=== PATIENT | male | born 1955 | race Caucasian/White ===

== ENCOUNTER 2017-09-25 00:49 | Day surgery (SDC) | payer OTHER ==
[~2017-09-25 00:49] MED LIST: ALBU90OI6 INH; ASPI325 PO; DIGO.125 PO; FINA5 PO; FISH1000 PO; FORM12IH IH; FURO40 PO; GLIP10 PO; HYDACE5 PO; LISI20 PO; METOPROLOL PO; NORT25 PO; OMEP20ER PO; PARO30 PO; RXHYDACE PO; SIMVASTATIN PO; TERA5 PO; TIOT18 IH; VITAMIN B50 COMPLEX PO; VITAMIN D PO
== END 2017-09-25 15:35 | disposition home or self-care (01) ==
LOC: ATC 00:49
DX: E88.01 Alpha-1-antitrypsin deficiency (principal); J44.9 Chronic obstructive pulmonary disease, unspecified; I25.10 Atherosclerotic heart disease of native coronary artery without angina pectoris; H93.19 Tinnitus, unspecified ear; H91.90 Unspecified hearing loss, unspecified ear; Q55.69 Other congenital malformation of penis; Z79.899 Other long term (current) drug therapy
CPT/HCPCS: 96365; J0256

== ENCOUNTER 2017-10-08 00:54 | Day surgery (SDC) | payer OTHER | END 2017-10-08 15:28 | disposition home or self-care (01) | LOC: ATC 00:54 | DX: E88.01 Alpha-1-antitrypsin deficiency (principal); J44.9 Chronic obstructive pulmonary disease, unspecified; I25.10 Atherosclerotic heart disease of native coronary artery without angina pectoris; H93.19 Tinnitus, unspecified ear; H91.90 Unspecified hearing loss, unspecified ear; Q55.69 Other congenital malformation of penis | CPT/HCPCS: 96365; J0256 ==

== ENCOUNTER 2017-10-22 00:34 | Day surgery (SDC) | payer OTHER | END 2017-10-22 15:40 | disposition home or self-care (01) | LOC: ATC 00:34 | DX: E88.01 Alpha-1-antitrypsin deficiency (principal); J44.9 Chronic obstructive pulmonary disease, unspecified; E11.22 Type 2 diabetes mellitus with diabetic chronic kidney disease; M54.5 Low back pain; I13.0 Hypertensive heart and chronic kidney disease with heart failure and stage 1 through stage 4 chronic kidney disease, or unspecified chronic kidney disease; I50.40 Unspecified combined systolic (congestive) and diastolic (congestive) heart failure; N18.2 Chronic kidney disease, stage 2 (mild); I25.10 Atherosclerotic heart disease of native coronary artery without angina pectoris | CPT/HCPCS: 96365; J0256 ==

== ENCOUNTER 2017-11-05 00:18 | Day surgery (SDC) | payer OTHER | END 2017-11-05 14:53 | disposition home or self-care (01) | LOC: ATC 00:18 | DX: E88.01 Alpha-1-antitrypsin deficiency (principal); E11.9 Type 2 diabetes mellitus without complications; I10 Essential (primary) hypertension | CPT/HCPCS: 96365; J0256 ==

== ENCOUNTER 2017-12-10 00:21 | Day surgery (SDC) | payer OTHER | END 2017-12-10 15:10 | disposition home or self-care (01) | LOC: ATC 00:21 | DX: E88.01 Alpha-1-antitrypsin deficiency (principal) | CPT/HCPCS: 96365; J0256 ==

== ENCOUNTER 2017-12-24 00:44 | Day surgery (SDC) | payer OTHER | END 2017-12-24 10:59 | disposition home or self-care (01) | LOC: ATC 00:44 | DX: E88.01 Alpha-1-antitrypsin deficiency (principal) | CPT/HCPCS: 96365; J0256 ==

== ENCOUNTER 2018-01-07 07:17 | Day surgery (SDC) | payer OTHER ==
[2018-01-07] MEDS ORDERED: PROLASTIN1000 MG/20 IV (13:51)
== END 2018-01-07 15:45 | disposition home or self-care (01) ==
LOC: ATC 07:17
DX: E88.01 Alpha-1-antitrypsin deficiency (principal); E11.65 Type 2 diabetes mellitus with hyperglycemia; I10 Essential (primary) hypertension; J44.9 Chronic obstructive pulmonary disease, unspecified
CPT/HCPCS: 96365; 96366; J0256

== ENCOUNTER 2018-01-21 00:04 | Day surgery (SDC) | payer OTHER ==
[~2018-01-21 00:04] MED LIST changes: +PROLASTIN1000 MG/20 IV
== END 2018-01-21 15:12 | disposition home or self-care (01) ==
LOC: ATC 00:04
DX: E88.01 Alpha-1-antitrypsin deficiency (principal)
CPT/HCPCS: 96365; J0256

== ENCOUNTER 2018-02-04 | Day surgery (SDC) | END 2018-02-04 15:20 | disposition home or self-care (01) ==

== ENCOUNTER 2018-02-18 00:53 | Day surgery (SDC) | payer OTHER | END 2018-02-18 15:10 | disposition home or self-care (01) | LOC: ATC 00:53 | DX: E88.01 Alpha-1-antitrypsin deficiency (principal) | CPT/HCPCS: 96365; J0256 ==

== ENCOUNTER 2018-03-03 00:20 | Day surgery (SDC) | payer OTHER | END 2018-03-03 15:28 | disposition home or self-care (01) | LOC: ATC 00:20 | DX: E88.01 Alpha-1-antitrypsin deficiency (principal) | CPT/HCPCS: 96365; J0256 ==

== ENCOUNTER 2018-03-18 00:49 | Day surgery (SDC) | payer OTHER | END 2018-03-18 14:39 | disposition home or self-care (01) | LOC: ATC 00:49 | DX: E88.01 Alpha-1-antitrypsin deficiency (principal); I25.10 Atherosclerotic heart disease of native coronary artery without angina pectoris; Z79.899 Other long term (current) drug therapy; Z79.82 Long term (current) use of aspirin; Z79.84 Long term (current) use of oral hypoglycemic drugs; E11.22 Type 2 diabetes mellitus with diabetic chronic kidney disease; I13.0 Hypertensive heart and chronic kidney disease with heart failure and stage 1 through stage 4 chronic kidney disease, or unspecified chronic kidney disease; N18.2 Chronic kidney disease, stage 2 (mild); I50.22 Chronic systolic (congestive) heart failure; J43.9 Emphysema, unspecified | CPT/HCPCS: 96365; J0256 ==

== ENCOUNTER 2018-04-08 00:32 | Day surgery (SDC) | payer OTHER | END 2018-04-08 15:08 | disposition home or self-care (01) | LOC: ATC 00:32 | DX: E88.01 Alpha-1-antitrypsin deficiency (principal) | CPT/HCPCS: 96365; J0256 ==

== ENCOUNTER 2018-04-22 00:47 | Day surgery (SDC) | payer OTHER | END 2018-04-22 15:23 | disposition home or self-care (01) | LOC: ATC 00:47 | DX: E88.01 Alpha-1-antitrypsin deficiency (principal) | CPT/HCPCS: 96365; J0256 ==

== ENCOUNTER 2018-05-06 00:12 | Day surgery (SDC) | payer OTHER ==
[2018-05-06] MEDS ORDERED: IRON150C PO (14:05)
== END 2018-05-06 14:53 | disposition home or self-care (01) ==
LOC: ATC 00:12
DX: E88.01 Alpha-1-antitrypsin deficiency (principal)
CPT/HCPCS: 96365; J0256

== ENCOUNTER 2018-06-03 02:06 | Day surgery (SDC) | payer OTHER ==
[~2018-06-03 02:06] MED LIST changes: +IRON150C PO
== END 2018-06-03 14:54 | disposition home or self-care (01) ==
LOC: ATC 02:06
DX: E88.01 Alpha-1-antitrypsin deficiency (principal)
CPT/HCPCS: 96365; J0256

== ENCOUNTER 2018-08-26 00:12 | Day surgery (SDC) | payer OTHER | END 2018-08-26 14:55 | disposition home or self-care (01) | LOC: ATC 00:12 | DX: E88.01 Alpha-1-antitrypsin deficiency (principal); E11.65 Type 2 diabetes mellitus with hyperglycemia; I10 Essential (primary) hypertension | CPT/HCPCS: 96365; J0256 ==

== ENCOUNTER 2018-09-09 00:07 | Day surgery (SDC) | payer OTHER | END 2018-09-09 14:34 | disposition home or self-care (01) | LOC: ATC 00:07 | DX: E88.01 Alpha-1-antitrypsin deficiency (principal); E11.65 Type 2 diabetes mellitus with hyperglycemia; I10 Essential (primary) hypertension | CPT/HCPCS: 96365; J0256 ==

== ENCOUNTER 2018-09-23 00:12 | Day surgery (SDC) | payer OTHER | END 2018-09-23 14:37 | disposition home or self-care (01) | LOC: ATC 00:12 | DX: E88.01 Alpha-1-antitrypsin deficiency (principal); E11.65 Type 2 diabetes mellitus with hyperglycemia; I10 Essential (primary) hypertension | CPT/HCPCS: 96365; J0256 ==

== ENCOUNTER 2018-10-07 00:18 | Day surgery (SDC) | payer OTHER | END 2018-10-07 15:22 | disposition home or self-care (01) | LOC: ATC 00:18 | DX: E88.01 Alpha-1-antitrypsin deficiency (principal) | CPT/HCPCS: 96365; J0256 ==

== ENCOUNTER 2018-10-21 00:11 | Day surgery (SDC) | payer OTHER | END 2018-10-21 14:01 | disposition home or self-care (01) | LOC: ATC 00:11 | DX: E88.01 Alpha-1-antitrypsin deficiency (principal) | CPT/HCPCS: 96365; J0256 ==

== ENCOUNTER 2018-11-25 00:25 | Day surgery (SDC) | payer OTHER ==
--- NOTE | 2018-11-25 13:30 | NUR ---
PT STATES HE HAS BEEN NOT FEELING WELL FOR A WEEK. STATES HE IS NAUSEATED. BP LOW. ASKED IF PT WOULD LIKE TO GO TO ER AND PT SAID NO. WILL RECHECK VS AT DISCHARGE.
== END 2018-11-25 14:44 | disposition home or self-care (01) ==
LOC: ATC 00:25
DX: E88.01 Alpha-1-antitrypsin deficiency (principal); J44.9 Chronic obstructive pulmonary disease, unspecified; J96.11 Chronic respiratory failure with hypoxia; G47.33 Obstructive sleep apnea (adult) (pediatric); Z87.891 Personal history of nicotine dependence; Z79.899 Other long term (current) drug therapy
CPT/HCPCS: J0256

== ENCOUNTER 2018-12-09 00:41 | Day surgery (SDC) | payer OTHER | END 2018-12-09 14:54 | disposition home or self-care (01) | LOC: ATC 00:41 | DX: E88.01 Alpha-1-antitrypsin deficiency (principal); J44.9 Chronic obstructive pulmonary disease, unspecified; J96.11 Chronic respiratory failure with hypoxia; G47.33 Obstructive sleep apnea (adult) (pediatric); I50.9 Heart failure, unspecified; E11.9 Type 2 diabetes mellitus without complications; K21.9 Gastro-esophageal reflux disease without esophagitis; Z99.89 Dependence on other enabling machines and devices; Z87.891 Personal history of nicotine dependence; Z79.899 Other long term (current) drug therapy; Z79.84 Long term (current) use of oral hypoglycemic drugs | CPT/HCPCS: 96365; J0256 ==

== ENCOUNTER 2018-12-23 00:24 | Day surgery (SDC) | payer OTHER ==
--- NOTE | 2018-12-25 09:26 | NUR ---
PROLASTIN STOP TIME AT 1517.
== END 2018-12-23 15:19 | disposition home or self-care (01) ==
LOC: ATC 00:24
DX: E88.01 Alpha-1-antitrypsin deficiency (principal); I10 Essential (primary) hypertension; J84.10 Pulmonary fibrosis, unspecified; E11.9 Type 2 diabetes mellitus without complications
CPT/HCPCS: J0256

== ENCOUNTER 2019-01-06 00:04 | Day surgery (SDC) | payer OTHER | END 2019-01-06 15:02 | disposition home or self-care (01) | LOC: ATC 00:04 | DX: E88.01 Alpha-1-antitrypsin deficiency (principal); E11.22 Type 2 diabetes mellitus with diabetic chronic kidney disease; I13.0 Hypertensive heart and chronic kidney disease with heart failure and stage 1 through stage 4 chronic kidney disease, or unspecified chronic kidney disease; I50.22 Chronic systolic (congestive) heart failure; N18.2 Chronic kidney disease, stage 2 (mild); J44.9 Chronic obstructive pulmonary disease, unspecified; Z87.891 Personal history of nicotine dependence | CPT/HCPCS: 96365; J0256 ==

== ENCOUNTER 2019-01-20 00:18 | Day surgery (SDC) | payer OTHER | END 2019-01-20 22:47 | disposition home or self-care (01) | LOC: ATC 00:18 | DX: E88.01 Alpha-1-antitrypsin deficiency (principal); I13.0 Hypertensive heart and chronic kidney disease with heart failure and stage 1 through stage 4 chronic kidney disease, or unspecified chronic kidney disease; E11.22 Type 2 diabetes mellitus with diabetic chronic kidney disease; N18.2 Chronic kidney disease, stage 2 (mild); I50.22 Chronic systolic (congestive) heart failure; J44.9 Chronic obstructive pulmonary disease, unspecified; I25.10 Atherosclerotic heart disease of native coronary artery without angina pectoris; E66.9 Obesity, unspecified; Z87.891 Personal history of nicotine dependence | CPT/HCPCS: 96365; J0256 ==

== ENCOUNTER 2019-03-03 00:27 | Day surgery (SDC) | payer OTHER ==
[~2019-03-03 00:27] MED LIST changes: -ASPI325 PO; +Aspirin EC81 MG PO; +B Complex-Foli1 EACH PO; -DIGO.125 PO; +LANOXIN125 MCG PO; -LISI20 PO; +LISI5 PO; +METO100ER PO; -METOPROLOL PO; -NORT25 PO; +Nortriptyline H50 MG PO; +SIMV40 PO; -SIMVASTATIN PO; +THERA-D2000 UNIT PO; -VITAMIN B50 COMPLEX PO; -VITAMIN D PO
== END 2019-03-03 14:41 | disposition home or self-care (01) ==
LOC: ATC 00:27
DX: E88.01 Alpha-1-antitrypsin deficiency (principal)
CPT/HCPCS: 96365; J0256

== ENCOUNTER 2019-04-14 00:24 | Day surgery (SDC) | payer OTHER | END 2019-04-14 14:39 | disposition home or self-care (01) | LOC: ATC 00:24 | DX: E88.01 Alpha-1-antitrypsin deficiency (principal); J44.9 Chronic obstructive pulmonary disease, unspecified; I50.9 Heart failure, unspecified; E11.9 Type 2 diabetes mellitus without complications; K21.9 Gastro-esophageal reflux disease without esophagitis; G47.33 Obstructive sleep apnea (adult) (pediatric); Z99.89 Dependence on other enabling machines and devices; Z87.891 Personal history of nicotine dependence | CPT/HCPCS: 96365; J0256 ==

== ENCOUNTER 2019-04-28 00:14 | Day surgery (SDC) | payer OTHER | END 2019-04-28 15:00 | disposition home or self-care (01) | LOC: ATC 00:14 | DX: E88.01 Alpha-1-antitrypsin deficiency (principal); E11.9 Type 2 diabetes mellitus without complications; I10 Essential (primary) hypertension; Z87.891 Personal history of nicotine dependence | CPT/HCPCS: 96365; J0256 ==

== ENCOUNTER 2019-05-26 00:18 | Day surgery (SDC) | payer OTHER | END 2019-05-26 14:44 | disposition home or self-care (01) | LOC: ATC 00:18 | DX: E88.01 Alpha-1-antitrypsin deficiency (principal); E11.9 Type 2 diabetes mellitus without complications; J44.9 Chronic obstructive pulmonary disease, unspecified; Z87.891 Personal history of nicotine dependence | CPT/HCPCS: 96365; J0256 ==

== ENCOUNTER 2019-06-09 00:08 | Day surgery (SDC) | payer OTHER | END 2019-06-09 15:53 | disposition home or self-care (01) | LOC: ATC 00:08 | DX: E88.01 Alpha-1-antitrypsin deficiency (principal); E11.9 Type 2 diabetes mellitus without complications; J44.9 Chronic obstructive pulmonary disease, unspecified; Z87.891 Personal history of nicotine dependence | CPT/HCPCS: 96365; J0256 ==

== ENCOUNTER 2019-06-18 11:50 | Inpatient (IN) | payer OTHER ==
[~2019-06-18] VITALS: Ht 170.2 cm; Wt 95.4 kg
[2019-06-18 12:37] LABS: BASOPHILS ABSOLUTE AUTO 0.02 K/mm3 (0.00-0.23); BASOPHILS PERCENT AUTO 1 % (0-2); EOSINOPHILS ABSOLUTE AUTO 0.14 K/mm3 (0.00-0.68); EOSINOPHILS PERCENT AUTO 3 % (0-6); Hematocrit 31.7 % (37.0-53.0); Hemoglobin 10.4 g/dL (13.5-17.5); IMMATURE GRAN ABSOLUTE AUTO 0.02 K/mm3 (0.00-0.10); IMMATURE GRAN PERCENT AUTO 1 % (0-1); LYMPHOCYTES ABSOLUTE AUTO 0.66 K/mm3 (0.84-5.20); LYMPHOCYTES PERCENT AUTO 15 % (21-46); MONOCYTES ABSOLUTE AUTO 0.24 K/mm3 (0.16-1.47); MONOCYTES PERCENT AUTO 6 % (4-13); Mean Corpuscular HGB 32.4 pg (26.0-34.0); Mean Corpuscular HGB Conc 32.8 g/dL (31.5-36.5); Mean Corpuscular Volume 99 fL (80-100); Mean Platelet Volume 11.2 fL (9.1-12.4); NEUTROPHILS ABSOLUTE AUTO 3.32 K/mm3 (1.96-9.15); NEUTROPHILS PERCENT AUTO 75 % (41-73); Platelet Count 75 K/mm3 (150-400); RDW Coefficient Variation 14.9 % (11.7-14.2); RDW Standard Deviation 53.9 fL (35.1-46.3); Red Blood Cell Count 3.21 M/mm3 (4.30-5.90)
[2019-06-18 12:54] LABS: Alanine Aminotransfer (ALT/SGP 48 U/L (12-78); Albumin, Blood 2.6 g/dL (3.4-5.0); Albumin/Globulin Ratio 0.6 (0.8-1.8); Alk Phos 156 U/L (50-136); Anion Gap 7 mmol/L (6-16); Aspartate Aminotrans (AST/SGOT 59 U/L (12-37); Bilirubin, Total 1.1 mg/dL (0.1-1.0); Blood Urea Nitrogen 57 mg/dL (8-24); Bun/Creatinine Ratio 22.9 (12.0-20.0); CO2, Blood 30 mmol/L (21-32); Calcium, Blood 8.8 mg/dL (8.5-10.1); Chloride, Blood 99 mmol/L (98-108); Creatinine, Blood 2.49 mg/dL (0.60-1.20); Globulin, Blood 4.6 g/dL (2.2-4.0); Glomerular Filtration Rate 28 (60-); Glucose, Blood 273 mg/dL (70-99); Potassium, Blood 4.9 mmol/L (3.5-5.5); Sodium, Blood 136 mmol/L (136-145); Total Protein, Blood 7.2 g/dL (6.4-8.2); Troponin I <0.015 ng/mL (0.000-0.040)
[2019-06-18 12:58] LABS: PCO2 Arterial 41.8 mmHg (35-45); PO2 Arterial 75.2 mmHg (80-100); pH Blood Arterial 7.45 (7.35-7.45)
[2019-06-18 13:10] LABS: International Normalized Ratio 1.25
[2019-06-18 13:11] LABS: Source, Urine Clean Catch
[2019-06-18 13:14] LABS: Bilirubin, Urine Neg (Neg); Blood, Urine 1+ (Neg); Glucose Qualitative, Urine Neg (Neg); Ketones, Urine Neg (Neg); Leukocyte Esterase, Urine 3+ (Neg); Nitrite, Urine Neg (Neg); Protein, Urine Neg (Neg); Specific Gravity, Urine 1.015 (1.003-1.022); Urobilinogen, Urine 1+ (Normal)
[2019-06-18 13:15] LABS: Appearance, Urine Hazy (Clear); Color, Urine Yellow (P-Yellow)
[2019-06-18 13:22] LABS: Bacteria Many /hpf; Red Blood Cells, Urine 0-2 /hpf (0-2); Squamous Epithelial Cells Few /hpf (Few); White Blood Cells, Urine 25-50 /hpf (0-5)
[2019-06-18] MEDS ORDERED: IRON PO (13:34)
[2019-06-18] MEDS ORDERED: RIFA550T2 PO (13:36)
[2019-06-18] MEDS ORDERED: BUDE6HFA INH (13:37)
[2019-06-18 13:43] LABS: Digoxin (Lanoxin) 1.66 ug/mL (0.80-2.00)
[2019-06-18] MEDS ORDERED: Aldactone50 MG PO (14:28)
[2019-06-18] MEDS ORDERED: METF500C PO (14:33)
[2019-06-18] MEDS ORDERED: STIOLTO RESPIMAT4 GM INH (14:34)
[2019-06-18] MEDS ORDERED: HYDHCL25 PO (18:54)
--- NOTE | 2019-06-18 19:49 | NUR ---
ARRIVAL AND SHIFT SUMMARY PT ARRIVED TO UNIT APPROX. 1715. VIA GURNERY FROM ED. PT ABLE TO TRANSFER HIMSELF FROM GURNEY TO BED AND TOLERATED WELL. ORIENTED PT TO ROOM, UNIT, AND POLICIES. ADMISSION PROCESS COMPLETED, ALTHOUGH MEDICATION RECONCILE WAS UNABLE TO BE ACCURATELY COMPLETED. NOTIFIED RECIEVING RN. ASSESSMENT COMPLETED. VITAL SIGNS STABLE. PT REPORTS FEELING SOME BETTER FROM WHEN HE CAME IN TODAY. PT HAS A HOARSE VOICE AND REPORTS THIS TO BE NORMAL. SLIGHT ABDOMENAL DISTENTION NOTED. PT REPROTS THIS HAS IMPROVED OVER ALST COUPLE OF WEEKS. PT ABLE TO EAT DINNER AND TOLERATED WELL. ASSESSMENT FINDINGS REMAIN UNCHANGED. BED IN LOW POSITION, BED ALARM ON, CALL LIGHT IN REACH AND PT DENIES ANY NEEDS. WILL CONTINUE TO MONITOR UNTIL HANDOFF TO NIGHTSHIFT RN.
[2019-06-19 04:21] LABS: BASOPHILS ABSOLUTE AUTO 0.02 K/mm3 (0.00-0.23); BASOPHILS PERCENT AUTO 1 % (0-2); EOSINOPHILS ABSOLUTE AUTO 0.15 K/mm3 (0.00-0.68); EOSINOPHILS PERCENT AUTO 4 % (0-6); Hematocrit 27.9 % (37.0-53.0); Hemoglobin 9.1 g/dL (13.5-17.5); IMMATURE GRAN ABSOLUTE AUTO 0.01 K/mm3 (0.00-0.10); IMMATURE GRAN PERCENT AUTO 0 % (0-1); LYMPHOCYTES ABSOLUTE AUTO 0.77 K/mm3 (0.84-5.20); LYMPHOCYTES PERCENT AUTO 19 % (21-46); MONOCYTES ABSOLUTE AUTO 0.25 K/mm3 (0.16-1.47); MONOCYTES PERCENT AUTO 6 % (4-13); Mean Corpuscular HGB 31.7 pg (26.0-34.0); Mean Corpuscular HGB Conc 32.6 g/dL (31.5-36.5); Mean Corpuscular Volume 97 fL (80-100); Mean Platelet Volume 10.9 fL (9.1-12.4); NEUTROPHILS ABSOLUTE AUTO 2.81 K/mm3 (1.96-9.15); NEUTROPHILS PERCENT AUTO 70 % (41-73); Platelet Count 63 K/mm3 (150-400); RDW Coefficient Variation 14.8 % (11.7-14.2); RDW Standard Deviation 53.2 fL (35.1-46.3); Red Blood Cell Count 2.87 M/mm3 (4.30-5.90); White Blood Cell Count 4.01 K/mm3 (4.00-11.30)
[2019-06-19 04:35] LABS: Bun/Creatinine Ratio 22.2 (12.0-20.0); Calcium, Blood 8.4 mg/dL (8.5-10.1); Creatinine, Blood 2.3 mg/dL (0.60-1.20); Potassium, Blood 4.8 mmol/L (3.5-5.5)
--- NOTE | 2019-06-19 07:53 | NUR ---
SHIFT SUMMARY ASSUMED CARE OF PT AT 1900, PT AWAKE AND ALERT LYING IN BED. PT REPORTED TO BE CONFUSED, BUT PT'S MENTATION AND PHYSICAL BALANCE IMPROVED BY THE HOUR THIS SHIFT. PT WAS MEDICATED AND TREATED PER MD ORDER AND UNIT PROTOCOL, AND OBSERVED CAREFULLY WITH INITIAL TRANSFERS AND MED ADMINISTRATIONS. PT AMBULATES WELL TO BATHROOM, REPOSITIONS SELF IN BED, IS COMPLIANT WITH CALL LIGHT, AND APPEARS NO DANGER TO HIMSELF. ALL VSS T/O SHIFT. PICTURES WERE TAKEN OF PT'S MANY BRUISES AND SCABS REPORTED FROM RECENT FALLS AND FILED IN PT'S PAPER CHART. PASSED CARE AND REPORT TO ONCOMING SHIFT AT 0700, WITH PT'S BED LOW AND LOCKED, AND CALL LIGHT W/IN REACH.
--- NOTE | 2019-06-19 09:01 | NUR ---
PCU DAYSHIFT ASSUMED CARE OF PT APPROX. 0700. PT A&OX4. ASSESSMENT COMPLETED. VITAL SIGNS STABLE. PT REPORTS THIS MORNING THAT HE FEELS BETTER THAN YESTERDAY. HE STATES THAT HE FEELS HE IS CLEARING UP SOME. HE STATES HE FEEL HE CAN FOCUS MORE THAN BEFORE. PT IS ON 2L OXYGEN VIA N.C. WITH SATS IN 90'S. PT ABLE TO WALK TO BATHROOM A SBA AND TOLERATES WELL. PT PASSING FLATULENCE AND A SMALL AMOUNT OF STOOL PER HIS REPORT. BED IN LOW POSITION, CALL LIGHT IN REACH AND PT DENIES ANY NEEDS. WILL CONTINUE TO MONITOR
--- NOTE | 2019-06-19 14:01 | NUR ---
NOTE BLADDER SCAN COMPLETED AND FOUND 215 CC IN BLADDER. NOTIFIED DR. LANDEROS AND RECIEVED NO NEW ORDERS AT THIS TIME. RECIEVED A NEW ROOM ASSIGNMENT. REPORTS CALLED TO RECIEVING RN. PT TO BE TAKEN TO NEW ROOM VIA WHEELCHAIR BY PEER STAFF MEMBER. WILL CONTINUE TO MONITOR UNTIL PT DEPARTS UNIT
--- NOTE | 2019-06-19 17:02 | NUR ---
RECEIVED FROM [facility] ABOUT 1445 TO RM 333 VIA W/C. ORIENTED TO ROOM. CALL LIGHT IN REACH AND BED ALARM SET D/T FALLS AT HOME. VARIED BP 1 MIN APART THIS AFTERNOON. HE FELT NORMAL. HE IS GENERALLY WEAK. THE PHYSICAL THERAPIST WORKED WITH HIM JUST AFTER 3 PM TODAY. THE PATIENT WALKED IN THE ROOM. O2 2L. NO COMPLAINTS. PAS RESUMED. CPAP FROM HOME IN THE ROOM FOR TONIGHT.
--- NOTE | 2019-06-20 04:13 | NUR ---
SHIFT SUMMARY: PT IS ALERT AND ORIENTED. PT IS CALM AND COOPERATIVE WITH CARE. PT CALLS APPROPRIATELY. PT IS A STANDBY ASSIST TO THE BATHROOM. PT DENIES PAIN, NAUSEA, VOMITING, AND SOB. DR. LANDEROS STOPPED BY AND REQUESTED A BLADDER SCAN, RESULTS SHOWED 196 ML, THE PT THEN VOIDED 100 ML SHORLTY THEREAFTER. PT SLEPT INTERMITTENTLY THROUGHOUT THE NIGHT. PT DID NOT WEAR CPAP OVERNIGHT, SAID HIS STRAPS ARE NOT FITTING TIGHTLY AND HE DID NOT DESIRE TO USE THE HOSPITAL'S CPAP. NO ACUTE CHANGES OR COMPLICATIONS THIS SHIFT. BED IN LOW POSITION, CALL LIGHT WITHIN REACH. WILL CONTINUE TO MONITOR.
[2019-06-20 05:00] LABS: BASOPHILS ABSOLUTE AUTO 0.02 K/mm3 (0.00-0.23); BASOPHILS PERCENT AUTO 1 % (0-2); EOSINOPHILS ABSOLUTE AUTO 0.11 K/mm3 (0.00-0.68); EOSINOPHILS PERCENT AUTO 4 % (0-6); Hematocrit 26.1 % (37.0-53.0); Hemoglobin 8.4 g/dL (13.5-17.5); IMMATURE GRAN ABSOLUTE AUTO 0.01 K/mm3 (0.00-0.10); IMMATURE GRAN PERCENT AUTO 0 % (0-1); LYMPHOCYTES ABSOLUTE AUTO 0.54 K/mm3 (0.84-5.20); LYMPHOCYTES PERCENT AUTO 19 % (21-46); MONOCYTES ABSOLUTE AUTO 0.21 K/mm3 (0.16-1.47); MONOCYTES PERCENT AUTO 7 % (4-13); Mean Corpuscular HGB 32.3 pg (26.0-34.0); Mean Corpuscular HGB Conc 32.2 g/dL (31.5-36.5); Mean Platelet Volume 11.2 fL (9.1-12.4); NEUTROPHILS ABSOLUTE AUTO 1.97 K/mm3 (1.96-9.15); NEUTROPHILS PERCENT AUTO 69 % (41-73); Platelet Count 55 K/mm3 (150-400); RDW Standard Deviation 54.6 fL (35.1-46.3); White Blood Cell Count 2.86 K/mm3 (4.00-11.30)
[2019-06-20 05:02] LABS: Mean Corpuscular Volume 100 fL (80-100)
[2019-06-20 05:25] LABS: Albumin, Blood 2.2 g/dL (3.4-5.0); Anion Gap 6 mmol/L (6-16); Blood Urea Nitrogen 35 mg/dL (8-24); Bun/Creatinine Ratio 20.3 (12.0-20.0); CO2, Blood 24 mmol/L (21-32); Calcium, Blood 8.1 mg/dL (8.5-10.1); Chloride, Blood 110 mmol/L (98-108); Creatinine, Blood 1.72 mg/dL (0.60-1.20); Glomerular Filtration Rate 42 (60-); Glucose, Blood 184 mg/dL (70-99); Magnesium, Blood 1.7 mg/dL (1.6-2.4); Phosphorus, Blood 2.6 mg/dL (2.5-4.9); Potassium, Blood 4.8 mmol/L (3.5-5.5); Sodium, Blood 140 mmol/L (136-145); Uric Acid, Blood 8.7 mg/dL (3.5-7.2)
[2019-06-20 05:26] LABS: CPK Creatine Kinase 66 U/L (39-308)
--- NOTE | 2019-06-20 17:42 | NUR ---
HE HAS BEEN CLEAR HEADED TODAY. HIS NH3 LEVEL DOWN TO 38. HIS VISITED FOR SEVERAL HRS. SHE BROUGHT IN HIS RIFAXIMIN. IT HAS BEEN CHECKED BY PHARMACY AND LABELED. PT WORKED WITH HIM TODAY. HE IS EATING WELL. HE HAS HAD 4 LOOSE STOOLS TODAY AND IS STILL RECEIVING LACTULOSE. CBG'S STABLE. VSS. AMBULATES WITH SBA. 2L O2. HE CHOSE NOT TO WEAR HIS CPAP LAST NIGHT. [facility]. HIS NEW MASK LEAKS ALSO BECAUSE OF THE STRAPS. I ENCOURAGED HIM TO ASK FOR NEW STRAPS SO HIS CPAP WILL BE USABLE. HE SAYS WHEN IT FITS, HE SLEEPS REAL WELL. HIS VOICE IS WEAK, ALMOST LIKE A WHISPER. HE IS CURRENTLY SITTING ON THE SIDE OF THE BED EATING DINNER.
--- NOTE | 2019-06-21 04:04 | NUR ---
SHIFT SUMMARY: PT IS ALERT AND ORIENTED. PT IS CALM AND COOPERATIVE WITH CARE. PT CALLS APPROPRIATELY. PT IS A STANDBY ASSIST TO THE BATHROOM. FLUIDS RUNNING ORDERED. PT DENIES PAIN, NAUSEA, VOMITING, AND SOB. PT SLEPT MUCH OF THE NIGHT WHEN NOT DISTURBED. NO ACUTE CHANGES OR COMPLICATIONS. BED IN LOW POSITION, CALL LIGHT WITHIN REACH. WILL CONTINUE TO MONITOR.
[2019-06-21 05:53] LABS: BASOPHILS ABSOLUTE AUTO 0.02 K/mm3 (0.00-0.23); BASOPHILS PERCENT AUTO 1 % (0-2); EOSINOPHILS ABSOLUTE AUTO 0.17 K/mm3 (0.00-0.68); EOSINOPHILS PERCENT AUTO 5 % (0-6); Hematocrit 28.1 % (37.0-53.0); IMMATURE GRAN ABSOLUTE AUTO 0.01 K/mm3 (0.00-0.10); IMMATURE GRAN PERCENT AUTO 0 % (0-1); LYMPHOCYTES ABSOLUTE AUTO 0.55 K/mm3 (0.84-5.20); LYMPHOCYTES PERCENT AUTO 17 % (21-46); MONOCYTES ABSOLUTE AUTO 0.22 K/mm3 (0.16-1.47); MONOCYTES PERCENT AUTO 7 % (4-13); Mean Corpuscular HGB 31.7 pg (26.0-34.0); Mean Corpuscular Volume 99 fL (80-100); Mean Platelet Volume 10.9 fL (9.1-12.4); NEUTROPHILS ABSOLUTE AUTO 2.35 K/mm3 (1.96-9.15); NEUTROPHILS PERCENT AUTO 71 % (41-73); Platelet Count 58 K/mm3 (150-400); RDW Coefficient Variation 15.1 % (11.7-14.2); RDW Standard Deviation 54.7 fL (35.1-46.3); Red Blood Cell Count 2.84 M/mm3 (4.30-5.90); White Blood Cell Count 3.32 K/mm3 (4.00-11.30)
[2019-06-21 05:59] LABS: Percent Saturation 36.6 % (20.0-50.0)
[2019-06-21 06:00] LABS: Albumin, Blood 2.3 g/dL (3.4-5.0); Albumin/Globulin Ratio 0.5 (0.8-1.8); Bilirubin, Direct 0.9 mg/dL (0.0-0.3); Bilirubin, Indirect 0.5 mg/dL (0.1-0.7); Bilirubin, Total 1.4 mg/dL (0.1-1.0); Bun/Creatinine Ratio 18.2 (12.0-20.0); Creatinine, Blood 1.48 mg/dL (0.60-1.20); Globulin, Blood 4.2 g/dL (2.2-4.0); Magnesium, Blood 1.7 mg/dL (1.6-2.4); Phosphorus, Blood 2.5 mg/dL (2.5-4.9); Potassium, Blood 5.1 mmol/L (3.5-5.5); Total Protein, Blood 6.5 g/dL (6.4-8.2)
[2019-06-21 07:08] LABS: HBSAG SCREEN Negative (Negative); HEP A AB, IGM Negative (Negative); HEP B CORE AB, IGM Negative (Negative); HEP C VIRUS AB <0.1 (0.0-0.9)
--- NOTE | 2019-06-21 18:13 | NUR ---
ALERT. ORIENTED. DENIES; PAIN, N/V. NO TELE. ON 2 LPM. BRUISING T/O WITH PATIENT STATING HE HAS FALLEN AT HOME. COOPERATIVE. STS ABD "FEELS LITTLE BLOATED AGAIN" WITH AWARE. MULTIPLE STOOLS T/O DAY. LACTULOSE DECREASED. INDEPENDENT IN ROOM. WCTM
--- NOTE | 2019-06-22 04:58 | NUR ---
SHIFT SUMMARY PT HAS APPEARED TO REST COMFORTABLY THROUGHOUT THE NIGHT AND GETS UP TO USE THE RESTROOM WHEN NEEDED, BUT NEEDS REMINDED TO LET US KNOW WHEN HE GOES SO WE CAN DOCUMENT AND MEASURE THE VOID. NO OTHER CHANGES THIS SHIFT. WILL CONTINUE TO MONITOR.
--- NOTE | 2019-06-22 05:53 | NUR ---
PT BLADDER SCANNED. PT HAS 477ML NOTED. DR LANDEROS NOTIFIED AND WANTS TO SEE WHAT PT LAB RESULTS ARE BEFORE GIVING DIRECTION.
[2019-06-22 06:16] LABS: Albumin, Blood 2.4 g/dL (3.4-5.0); Anion Gap 3 mmol/L (6-16); Blood Urea Nitrogen 23 mg/dL (8-24); Bun/Creatinine Ratio 16.9 (12.0-20.0); CO2, Blood 24 mmol/L (21-32); Calcium, Blood 8.2 mg/dL (8.5-10.1); Chloride, Blood 112 mmol/L (98-108); Creatinine, Blood 1.36 mg/dL (0.60-1.20); Glomerular Filtration Rate 56 (60-); Glucose, Blood 150 mg/dL (70-99); Magnesium, Blood 1.6 mg/dL (1.6-2.4); Phosphorus, Blood 2.7 mg/dL (2.5-4.9); Potassium, Blood 4.9 mmol/L (3.5-5.5); Sodium, Blood 139 mmol/L (136-145)
--- NOTE | 2019-06-22 11:26 | NUR ---
TALKED TO ABOUT PATIENT URINATING. HAS BEEN URINATING SMALL AMOUNTS, DID BLADDER SCAN AND WAS 464 ML IN BLADDER. NOT ON MEDS FOR PROSTRATE. ABD SWOLLEN AND PATIENT FEELS LIKE PRESSURE FROM ABD IS REASON URINATING SMALL AMOUNTS. ORDER IN AND OUT CATH AND FLOMAX 0.4 DAILY W/NOW DOSE.
--- NOTE | 2019-06-22 12:03 | NUR ---
TALKED TO . IN AND OUT CATH PRODUCED 100ML WITH TUBE LOOKING RED AFTER 100 OUTPUT. COULD NOT GET ANY MORE FLUID OUT AND WHEN CATH REMOVED A COUPLE OF BLOOD CLOTS CAME OUT. BLADDER SCAN Q 6 HOURS AND IF OVER 450ML IN AND OUT CATH. MAY USE LIDOCAINE.
--- NOTE | 2019-06-22 17:58 | NUR ---
ALERT. ORIENTED. ON 2 LPM OXYGEN VIA N/C. AWARE WILL BE BLADDER SCANNED Q 6 HOURS OR SO AND IF OVER 450 ML WILL NEED TO HAVE STRAIGHT CATH. STILL HAVING SOFT STOOL. INDEPENDENT IN ROOM. NO ACUTE CHANGES. WCTM
--- NOTE | 2019-06-23 04:03 | NUR ---
SHIFT SUMMARY PT HAD NO ISSUES OR COMPLAINTS. PT HAS BEEN SLEEPING WELL T/O NIGHT. PT HAS BEEN GETTING UP TO USE RESTROOM. PT REPORTS CONTINUED LOOSE STOOL. PT REPORTS HE VOIDS SOME DURING BM'S. PT HAS BEEN VOIDING IN URINAL TO TRACK AMOUNT. PT WAS BLADDER SCANNED AT OOOO HRS AND DID NOT REQUIRE CATH. PT CURRENTLY SLEEPING IN NO DISTRESS. PT WILL BE BLADDER SCANNED AT 0600 HRS. CALL LIGHT IN REACH.
--- NOTE | 2019-06-23 06:08 | NUR ---
BLADDER SCAN PT BLADDER SCANNED AND WAS FOUND TO HAVE 660 ML. PT WAS STRIGHT CATH ORDERED. 200 ML WERE REMOVED. PT WAS BLADDER SCANNED AGAIN AND WAS READING 580 ML. PT WAS CATH AGAIN WITH LONGER CATH WITH ONLY 25 ML PRODUCED. PT HAS ONGOING DISTENDED ABD FROM ASCITES. POSSIBLE THAT BLADDER SCAN IS READING ASCITES AND NOT URINE. PT DENIES URGE TO VOID.
[2019-06-23 08:13] LABS: BASOPHILS ABSOLUTE AUTO 0.02 K/mm3 (0.00-0.23); BASOPHILS PERCENT AUTO 1 % (0-2); EOSINOPHILS ABSOLUTE AUTO 0.14 K/mm3 (0.00-0.68); EOSINOPHILS PERCENT AUTO 4 % (0-6); Hematocrit 27.4 % (37.0-53.0); Hemoglobin 8.9 g/dL (13.5-17.5); IMMATURE GRAN ABSOLUTE AUTO 0.01 K/mm3 (0.00-0.10); IMMATURE GRAN PERCENT AUTO 0 % (0-1); LYMPHOCYTES ABSOLUTE AUTO 0.56 K/mm3 (0.84-5.20); LYMPHOCYTES PERCENT AUTO 14 % (21-46); MONOCYTES ABSOLUTE AUTO 0.23 K/mm3 (0.16-1.47); MONOCYTES PERCENT AUTO 6 % (4-13); Mean Corpuscular HGB 32.4 pg (26.0-34.0); Mean Corpuscular HGB Conc 32.5 g/dL (31.5-36.5); Mean Corpuscular Volume 100 fL (80-100); Mean Platelet Volume 11.5 fL (9.1-12.4); NEUTROPHILS ABSOLUTE AUTO 2.98 K/mm3 (1.96-9.15); NEUTROPHILS PERCENT AUTO 76 % (41-73); Platelet Count 59 K/mm3 (150-400); RDW Standard Deviation 54.4 fL (35.1-46.3); Red Blood Cell Count 2.75 M/mm3 (4.30-5.90); White Blood Cell Count 3.94 K/mm3 (4.00-11.30)
[2019-06-23 08:45] LABS: Albumin, Blood 2.3 g/dL (3.4-5.0); Albumin/Globulin Ratio 0.6 (0.8-1.8); Bilirubin, Total 1.1 mg/dL (0.1-1.0); Bun/Creatinine Ratio 18.1 (12.0-20.0); Calcium, Blood 8.1 mg/dL (8.5-10.1); Creatinine, Blood 1.38 mg/dL (0.60-1.20); Globulin, Blood 4.1 g/dL (2.2-4.0); Potassium, Blood 4.8 mmol/L (3.5-5.5); Total Protein, Blood 6.4 g/dL (6.4-8.2)
[2019-06-23 15:30] LABS: Automated BF WBC Count 0.164 K/mm3 (0-999); Body Fluid WBC Count 164 /mm3 (0-999)
[2019-06-23 15:40] LABS: RBC Count, Body Fluid 180 /mm3 (0-0)
[2019-06-23 15:56] LABS: Total Cell Count, Body Fluid 100
[2019-06-23 15:57] LABS: Appearance, Body Fluid Clear (Clear); Color, Body Fluid Yellow (None-Yellow)
[2019-06-23 16:20] LABS: Glucose, Body Fluid 180 mg/dL; Protein, Body Fluid 0.6 g/dL
[2019-06-23 16:23] LABS: pH, Body Fluid 7.9
--- NOTE | 2019-06-23 17:12 | NUR ---
Shift Summary A/Ox4. Pleasant and cooperative with care. Calls appropriately. US-guided paracentesis was done and 4.5L was removed, albumin given. 2+ edema L ankle, 1+ edema R ankle, bruises t/o L side of body from "falls at home". Denies pain, nausea, vomiting. Still having small bouts of loose yellow stools. No other acute changes this shift. Pt has not needed any insulin coverage this shift. VS remains stable, afebrile.
--- NOTE | 2019-06-24 04:59 | NUR ---
SHIFT SUMMARY: 64 Y/O MALE RESTED COMFORTABLY ALL SHIFT, DENIES PAIN OR NAUSEA, HAPPY AND COOPERATIVE, ABLE AMBULATE TO BATHROOM AND BACK PER SELF WITH GAIT SLOW AND STEADY, ALERT AND ORIENTED X 4, NUMEROUS BRUISING NOTED OVER ENTIRE BODY, WEARING O2 AT 2L/M PER NASAL CANNULA WITH NO DYSPNEA NOTED OR VOICED, BED LOW POSITION WITH CALL LIGHT AT SIDE.
[2019-06-24 05:53] LABS: BASOPHILS ABSOLUTE AUTO 0.02 K/mm3 (0.00-0.23); BASOPHILS PERCENT AUTO 1 % (0-2); EOSINOPHILS ABSOLUTE AUTO 0.12 K/mm3 (0.00-0.68); EOSINOPHILS PERCENT AUTO 4 % (0-6); Hematocrit 25.3 % (37.0-53.0); Hemoglobin 8.3 g/dL (13.5-17.5); IMMATURE GRAN ABSOLUTE AUTO 0.01 K/mm3 (0.00-0.10); IMMATURE GRAN PERCENT AUTO 0 % (0-1); LYMPHOCYTES ABSOLUTE AUTO 0.54 K/mm3 (0.84-5.20); LYMPHOCYTES PERCENT AUTO 17 % (21-46); MONOCYTES ABSOLUTE AUTO 0.16 K/mm3 (0.16-1.47); MONOCYTES PERCENT AUTO 5 % (4-13); Mean Corpuscular HGB 31.8 pg (26.0-34.0); Mean Corpuscular HGB Conc 32.8 g/dL (31.5-36.5); NEUTROPHILS ABSOLUTE AUTO 2.39 K/mm3 (1.96-9.15); NEUTROPHILS PERCENT AUTO 74 % (41-73); Platelet Count 57 K/mm3 (150-400); RDW Standard Deviation 53.1 fL (35.1-46.3); Red Blood Cell Count 2.61 M/mm3 (4.30-5.90); White Blood Cell Count 3.24 K/mm3 (4.00-11.30)
[2019-06-24 06:01] LABS: Mean Corpuscular Volume 97 fL (80-100)
[2019-06-24 06:27] LABS: Albumin, Blood 2.4 g/dL (3.4-5.0); Albumin/Globulin Ratio 0.6 (0.8-1.8); Bun/Creatinine Ratio 18.5 (12.0-20.0); Calcium, Blood 8.3 mg/dL (8.5-10.1); Creatinine, Blood 1.35 mg/dL (0.60-1.20); Potassium, Blood 4.9 mmol/L (3.5-5.5); Total Protein, Blood 6.4 g/dL (6.4-8.2)
[2019-06-24] MEDS ORDERED: LACT10SY PO (13:56)
[2019-06-24] MEDS ORDERED: PARO30 PO (13:57)
[2019-06-24] MEDS ORDERED: PROP10 PO (13:58)
--- NOTE | 2019-06-24 14:15 | NUR ---
Discharge Summary A/Ox4. Pt discharged to home via personal vehicle. Family at bedside while this RN provided discharge teaching and education, family had no questions. [facility] to call patient and schedule f/u appointment d/t not having available time during requested time frame. Meds faxed to [facility]. Pt escorted down via w/c by AGILE BUSINESS ANALYST along with belongings. Pt brought in home O2 tank for transport home, on 2LPM via CT.
== END 2019-06-24 14:22 | disposition home or self-care (01) | DRG 682 ==
LOC: ER 11:50 → MEDS 14:29 → PCU 14:29 → MEDS 17:00 → ER 17:00 → PCU 17:12 → MEDS 06-19 14:16 → ENPENDDIS 06-24 13:04 → MEDS 06-24 14:22
PROVIDERS: Emergency Medicine; Internal Medicine; Internal Medicine Nephrology; Physician Assistant; ADMIT Family Medicine
PROC: 0W9G3ZZ Drainage of Peritoneal Cavity, Percutaneous Approach (ICD-10-PCS; principal; 2019-06-23)
DX: N17.9 Acute kidney failure, unspecified (principal); K72.00 Acute and subacute hepatic failure without coma; R18.8 Other ascites; E72.20 Disorder of urea cycle metabolism, unspecified; E87.2 Acidosis; N39.0 Urinary tract infection, site not specified; K74.60 Unspecified cirrhosis of liver; R25.1 Tremor, unspecified; E11.22 Type 2 diabetes mellitus with diabetic chronic kidney disease; N18.9 Chronic kidney disease, unspecified; E88.01 Alpha-1-antitrypsin deficiency; J43.9 Emphysema, unspecified; I95.9 Hypotension, unspecified; I50.9 Heart failure, unspecified; G47.30 Sleep apnea, unspecified; Z99.81 Dependence on supplemental oxygen; Z91.19 Patient's noncompliance with other medical treatment and regimen; Z87.891 Personal history of nicotine dependence; E86.0 Dehydration; R29.6 Repeated falls; D69.6 Thrombocytopenia, unspecified; D64.9 Anemia, unspecified; E86.9 Volume depletion, unspecified; B96.20 Unspecified Escherichia coli [E. coli] as the cause of diseases classified elsewhere
CPT/HCPCS: 36415; 36600; 49083; 51701; 70450; 71046; 76770; 80048; 80053; 80069; 80074; 80162; 81001; 82140; 82248; 82550; 82607; 82728; 82746; 82803; 82945; 82947; 83540; 83550; 83605; 83690; 83735; 83986; 84100; 84157; 84484; 84550; 85018; 85025; 85610; 85730; 87040; 87070; 87077; 87086; 87186; 87205; 89051; 93005; 93010; 94640; 94760; 94762; 96361; 96365; 97110; 97162; 97165; 97530; 97535; 99285-25; G0103; J0256; J0696; J0881; J1815; J7030; J7120; P9046

== ENCOUNTER 2019-07-22 14:45 | Day surgery (SDC) | payer OTHER ==
[~2019-07-22 14:45] MED LIST changes: +Aldactone50 MG PO; +BUDE6HFA INH; +FISH OIL 1,0001 EACH PO; -FISH1000 PO; +HYDHCL25 PO; +IRON PO; +LACT10SY PO; +METF500C PO; +PROP10 PO; +RIFA550T2 PO; +STIOLTO RESPIMAT4 GM INH; +antibiotic
== END 2019-07-22 23:19 | disposition home or self-care (01) ==
LOC: US 14:45
DX: K74.69 Other cirrhosis of liver (principal)
CPT/HCPCS: 49083

== ENCOUNTER 2019-08-02 15:51 | Observation (INO) | payer OTHER ==
[~2019-08-02] VITALS: Ht 188 cm; Wt 91.5 kg
[2019-08-02 16:10] LABS: Calcium, Ionized (POC) 1.18 mmol/L (1.10-1.46); Chloride (POC) 95 mmol/L (98-108); Creatinine (POC) 2.6 mg/dL (0.8-1.3); Glucose (ISTAT POC) 134 mg/dL (70-99); Hemoglobin (POC) 10.2 g/dL (13.5-17.5); Potassium (POC) 4.2 mmol/L (3.5-5.5); Sodium (POC) 133 mmol/L (135-148); Total CO2 (POC) 33 mmol/L (21-32)
[2019-08-02 16:18] LABS: BASOPHILS ABSOLUTE AUTO 0.02 K/mm3 (0.00-0.23); BASOPHILS PERCENT AUTO 0 % (0-2); EOSINOPHILS ABSOLUTE AUTO 0.43 K/mm3 (0.00-0.68); EOSINOPHILS PERCENT AUTO 4 % (0-6); Hematocrit 31.2 % (37.0-53.0); Hemoglobin 10.5 g/dL (13.5-17.5); IMMATURE GRAN ABSOLUTE AUTO 0.08 K/mm3 (0.00-0.10); IMMATURE GRAN PERCENT AUTO 1 % (0-1); LYMPHOCYTES PERCENT AUTO 7 % (21-46); MONOCYTES ABSOLUTE AUTO 0.48 K/mm3 (0.16-1.47); MONOCYTES PERCENT AUTO 5 % (4-13); Mean Corpuscular HGB 32.6 pg (26.0-34.0); Mean Corpuscular HGB Conc 33.7 g/dL (31.5-36.5); Mean Corpuscular Volume 97 fL (80-100); Mean Platelet Volume 11.4 fL (9.1-12.4); NEUTROPHILS PERCENT AUTO 84 % (41-73); RDW Coefficient Variation 14.6 % (11.7-14.2); RDW Standard Deviation 52.1 fL (35.1-46.3); Red Blood Cell Count 3.22 M/mm3 (4.30-5.90); White Blood Cell Count 10.51 K/mm3 (4.00-11.30)
[2019-08-02 16:21] LABS: Platelet Count 61 K/mm3 (150-400)
[2019-08-02 16:35] LABS: Albumin, Blood 2.1 g/dL (3.4-5.0); Albumin/Globulin Ratio 0.6 (0.8-1.8); Bilirubin, Total 2.9 mg/dL (0.1-1.0); Bun/Creatinine Ratio 29.4 (12.0-20.0); Calcium, Blood 8.8 mg/dL (8.5-10.1); Creatinine, Blood 2.04 mg/dL (0.60-1.20); Globulin, Blood 3.8 g/dL (2.2-4.0); Potassium, Blood 4.2 mmol/L (3.5-5.5); Total Protein, Blood 5.9 g/dL (6.4-8.2)
[2019-08-02 17:33] LABS: Digoxin (Lanoxin) 0.07 ug/mL (0.80-2.00)
[2019-08-02] MEDS ORDERED: ALBU90OI INH (18:39)
[2019-08-02] MEDS ORDERED: FURO20 PO (18:40)
[2019-08-02] MEDS ORDERED: TERA5 PO (18:41)
[2019-08-02] MEDS ORDERED: OXYC5 PO (18:42)
[2019-08-02 21:14] LABS: Source, Urine Clean Catch
[2019-08-02 21:16] LABS: Bilirubin, Urine Neg (Neg); Blood, Urine 1+ (Neg); Glucose Qualitative, Urine Neg (Neg); Ketones, Urine Neg (Neg); Leukocyte Esterase, Urine 1+ (Neg); Nitrite, Urine Neg (Neg); Protein, Urine Neg (Neg); Specific Gravity, Urine 1.015 (1.003-1.022); Urobilinogen, Urine 1+ (Normal)
[2019-08-02 21:32] LABS: U Amphetamine Screen Not Detected; U Barbituate Screen Not Detected; U Benzodiazapine Screen Not Detected; U Buprenorphine Screen Not Detected; U Cannabinoids Screen Not Detected; U Cocaine Screen Not Detected; U Methadone Screen Not Detected; U Methamphetamine Screen Not Detected; U Opiates Screen Not Detected; U Oxycodone Screen DETECTED; U Phencyclidine Screen Not Detected; U Propoxyphene Screen Not Detected
[2019-08-02 21:35] LABS: Appearance, Urine Clear (Clear); Color, Urine Yellow (P-Yellow)
[2019-08-02 21:37] LABS: Bacteria Few /hpf; Hyaline Casts 0-2 /lpf (0-2); Squamous Epithelial Cells Few /hpf (Few)
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
[2019-08-03 04:52] LABS: Hematocrit 31.6 % (37.0-53.0); Hemoglobin 10.4 g/dL (13.5-17.5); Mean Corpuscular HGB 32.2 pg (26.0-34.0); Mean Corpuscular HGB Conc 32.9 g/dL (31.5-36.5); Mean Corpuscular Volume 98 fL (80-100); Mean Platelet Volume 10.8 fL (9.1-12.4); Platelet Count 59 K/mm3 (150-400); RDW Coefficient Variation 14.4 % (11.7-14.2); RDW Standard Deviation 51.8 fL (35.1-46.3); Red Blood Cell Count 3.23 M/mm3 (4.30-5.90)
[2019-08-03 05:07] LABS: Bun/Creatinine Ratio 28.2 (12.0-20.0); Calcium, Blood 8.8 mg/dL (8.5-10.1); Creatinine, Blood 2.02 mg/dL (0.60-1.20); Potassium, Blood 4.1 mmol/L (3.5-5.5)
--- NOTE | 2019-08-03 06:29 | NUR ---
NO ACUTE CHANGE FROM ABOVE NOTE
[2019-08-03] MEDS ORDERED: AMOCLA875 PO (10:37)
--- NOTE | 2019-08-03 11:40 | NUR ---
Echocardiogram completed.
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
[2019-08-04 04:23] LABS: Hemoglobin 10.4 g/dL (13.5-17.5); Mean Corpuscular HGB 31.8 pg (26.0-34.0); Mean Corpuscular HGB Conc 33.5 g/dL (31.5-36.5); RDW Coefficient Variation 14.2 % (11.7-14.2); RDW Standard Deviation 49.9 fL (35.1-46.3); Red Blood Cell Count 3.27 M/mm3 (4.30-5.90); White Blood Cell Count 7.57 K/mm3 (4.00-11.30)
[2019-08-04 04:24] LABS: Mean Corpuscular Volume 95 fL (80-100)
[2019-08-04 04:25] LABS: Platelet Count 49 K/mm3 (150-400)
[2019-08-04 04:28] LABS: Bun/Creatinine Ratio 27.6 (12.0-20.0); Calcium, Blood 8.2 mg/dL (8.5-10.1); Creatinine, Blood 1.92 mg/dL (0.60-1.20); Potassium, Blood 3.9 mmol/L (3.5-5.5)
--- NOTE | 2019-08-04 05:23 | NUR ---
SHIFT SUMMARY. ASSUMED CARE AT 1900. ORIENTED AND CONVERSING W/ APPROPRIATE MENTATION. SOME FORGETFULNES AND FREQ REMINDERS. BED ALARM ON AND DOES NOT TRY TO GET OUT OF BED. DENIES PAIN OF RT SWOLLEN CHEEK/FACE. REPORTS A LITTLE NUMBNESS OF THIS AREA. BSC FOR LOOSE YELLOW STOOLS. ONE PERSON ASSIST BUT VERY WEAK AND UNSTEADY GAIT. SOME OF NOC 3L NC AND NOW 2L NC. WNL SATS. VERY THICK SOUNDING MUCUS IN THROAT WHEN COUGHING. DOES NOT REPORT ANY DIFFICULT IN SWALLOWING, ATTEMPTS TO EXPECTORATE AND NO SUCCESS. CONSTANT USE OF FLUTTER VALVE. AND PROMOTES STRONG COUGH., BY 0300 BEGINS TO MAKE DISORIENTED COMENTS AND UNABLE TO UNDERSTAND TIME OF DAY AND UPSET AT STAFF WHO TELLS HIM DIFFERENTLY. " YOU DONT LIKE ME "..NOW HALLUCINATING. AND CALLS AT 0400. ATTEMPTING TO REORIENT AND DISAGREES W/ WHAT STAFF TELLS PT,. COOPERATIVE . AND STAYS IN BED. PLACED CALL TO DR SMITH ABOUT PLATELET COUNT AT 0500. NO ORDERWS LEFT. FAMILIAR ABOUT HAVING PARACENTESIS AND IV INFUSION AT [facility] TODAY HE SAYS HIS APPT IS TODAY/SAT WNL. STAYED AWAKE ALL NOC .
--- NOTE | 2019-08-04 09:23 | NUR ---
ASSUMED CARE PT UP TO BSC; ALERT; ON 2L NC; O2 SATS >94; VSS; PT SMILED AND RESPONDED APPROPRIATELY; EAR IS DRAINING AND PT STATES THIS STARTED YESTERDAY; PT BACK TO BED AFTER AM PO MEDS; CALL LIGHT IN REACH; BED IN LOWEST POSITION
[2019-08-04] MEDS ORDERED: GUAI600T33 PO (16:15)
[2019-08-04] MEDS ORDERED: PARO20 PO (16:17)
[2019-08-04] MEDS ORDERED: Floxin10 ML RIGHTEAR (16:36)
--- NOTE | 2019-08-04 17:12 | NUR ---
PT DISCHARGE DISCUSSED; NEW MEDICATION REVIEWED; EDUCATED ON NEED TO MAKE FOLLOW UP APPOINTMENTS; PT AND DAUGHTER VERBALIZED UNDERSTANDING; IV DISCONTINUED INTACT; ALL BELONGINGS COLLECTED AND SENT W/ PT; PT IN WHEELCHAIR PUSHED BY AID AND DAUGHTER WALKING OUT WITH THEM;
== END 2019-08-04 17:10 | disposition home or self-care (01) ==
LOC: ER 15:51 → PCU 15:52 → ER 17:50 → PCU 17:50
PROVIDERS: Emergency Medicine; ADMIT Internal Medicine
PROC: 0W9G3ZZ Drainage of Peritoneal Cavity, Percutaneous Approach (ICD-10-PCS; principal; 2019-08-04)
DX: I45.81 Long QT syndrome (principal); K11.20 Sialoadenitis, unspecified; K74.60 Unspecified cirrhosis of liver; R18.8 Other ascites; I48.91 Unspecified atrial fibrillation; J44.9 Chronic obstructive pulmonary disease, unspecified; N17.9 Acute kidney failure, unspecified; E11.22 Type 2 diabetes mellitus with diabetic chronic kidney disease; N18.9 Chronic kidney disease, unspecified; D63.1 Anemia in chronic kidney disease; I50.9 Heart failure, unspecified; E88.01 Alpha-1-antitrypsin deficiency; G92 Toxic encephalopathy; G47.33 Obstructive sleep apnea (adult) (pediatric); Z91.19 Patient's noncompliance with other medical treatment and regimen; Z87.891 Personal history of nicotine dependence; Z99.81 Dependence on supplemental oxygen; Z79.82 Long term (current) use of aspirin; Z79.51 Long term (current) use of inhaled steroids; Z79.899 Other long term (current) drug therapy
CPT/HCPCS: 36415; 49083; 70450; 71045; 80047; 80048; 80053; 80162; 81001; 82140; 83735; 84484; 85014; 85025; 85027; 87086; 93005; 93010; 93306; 94640; 94660; 94667; 94762; 96361; 96365; 97162; 97530; 98960; 99285-25; J0610; J3475; J7120; P9046

== ENCOUNTER 2019-08-18 13:27 | Emergency (ER) | payer OTHER ==
[~2019-08-18] VITALS: Ht 188 cm; Wt 90.7 kg
[~2019-08-18 13:27] MED LIST changes: +ALBU90OI INH; +AMOCLA875 PO; +FURO20 PO; +Floxin10 ML RIGHTEAR; +GUAI600T33 PO; +OXYC5 PO; +PARO20 PO
[2019-08-18] MEDS ORDERED: THERA-D2000 UNIT PO (14:29)
[2019-08-18] MEDS ORDERED: Aspir 8181 MG (14:29)
[2019-08-18] MEDS ORDERED: FINA5 PO (14:30)
[2019-08-18] MEDS ORDERED: Nortriptyline H50 MG (14:30)
[2019-08-18] MEDS ORDERED: Kristalose20 GM (14:30)
[2019-08-18] MEDS ORDERED: IRON150C PO (14:30)
[2019-08-18] MEDS ORDERED: PARO30 PO (14:31)
[2019-08-18] MEDS ORDERED: RIFA550T2 PO (14:31)
[2019-08-18] MEDS ORDERED: OMEPRAZOLE20 MG (14:31)
[2019-08-18] MEDS ORDERED: PROP10 (14:31)
[2019-08-18] MEDS ORDERED: TERA5 (14:32)
[2019-08-18] MEDS ORDERED: HYDHCL25 (14:32)
[2019-08-18] MEDS ORDERED: Zocor20 MG (14:32)
[2019-08-18] MEDS ORDERED: FURO20 PO (14:32)
[2019-08-18 14:49] LABS: BASOPHILS ABSOLUTE AUTO 0.01 K/mm3 (0.00-0.23); BASOPHILS PERCENT AUTO 0 % (0-2); EOSINOPHILS ABSOLUTE AUTO 0.11 K/mm3 (0.00-0.68); EOSINOPHILS PERCENT AUTO 1 % (0-6); Hematocrit 37.2 % (37.0-53.0); Hemoglobin 12.4 g/dL (13.5-17.5); IMMATURE GRAN ABSOLUTE AUTO 0.05 K/mm3 (0.00-0.10); IMMATURE GRAN PERCENT AUTO 0 % (0-1); LYMPHOCYTES ABSOLUTE AUTO 1.01 K/mm3 (0.84-5.20); LYMPHOCYTES PERCENT AUTO 8 % (21-46); MONOCYTES ABSOLUTE AUTO 0.65 K/mm3 (0.16-1.47); MONOCYTES PERCENT AUTO 5 % (4-13); Mean Corpuscular HGB 30.3 pg (26.0-34.0); Mean Corpuscular HGB Conc 33.3 g/dL (31.5-36.5); Mean Corpuscular Volume 91 fL (80-100); Mean Platelet Volume 10.3 fL (9.1-12.4); NEUTROPHILS ABSOLUTE AUTO 10.44 K/mm3 (1.96-9.15); NEUTROPHILS PERCENT AUTO 85 % (41-73); Platelet Count 239 K/mm3 (150-400); RDW Coefficient Variation 15.7 % (11.7-14.2); RDW Standard Deviation 51.6 fL (35.1-46.3); Red Blood Cell Count 4.09 M/mm3 (4.30-5.90); White Blood Cell Count 12.27 K/mm3 (4.00-11.30)
[2019-08-18 15:05] LABS: Albumin, Blood 2.2 g/dL (3.4-5.0); Albumin/Globulin Ratio 0.5 (0.8-1.8); Bilirubin, Total 12.4 mg/dL (0.1-1.0); Bun/Creatinine Ratio 23.1 (12.0-20.0); Calcium, Blood 9.1 mg/dL (8.5-10.1); Creatinine, Blood 3.12 mg/dL (0.60-1.20); Globulin, Blood 4.2 g/dL (2.2-4.0); Potassium, Blood 5.1 mmol/L (3.5-5.5); Total Protein, Blood 6.4 g/dL (6.4-8.2)
--- NOTE | 2019-08-18 15:10 | NUR ---
Called to ER to meet with pt and family pt frail jaundiced and weak. pt having difficulty swalloing po med and not wanting food. pt has coarse cough. pt pps skale 20%. Review of roxinaol as a medication for his comfort. pt scheduled for paracentesis. [facility] of [facility] needs. pt and family want to go home and continue with hospice paln. Theraputic care for daughter. pt has not been sleeping and neither has daughter. offered support and follow up for stress and grief.
== END 2019-08-18 17:14 | disposition home or self-care (01) ==
LOC: ER 13:27
PROVIDERS: Emergency Medicine
DX: N17.9 Acute kidney failure, unspecified (principal); E86.0 Dehydration; R18.8 Other ascites; K72.90 Hepatic failure, unspecified without coma; K74.60 Unspecified cirrhosis of liver; K76.6 Portal hypertension; I50.9 Heart failure, unspecified; E88.09 Other disorders of plasma-protein metabolism, not elsewhere classified; E11.22 Type 2 diabetes mellitus with diabetic chronic kidney disease; N18.9 Chronic kidney disease, unspecified; I48.91 Unspecified atrial fibrillation; J44.9 Chronic obstructive pulmonary disease, unspecified; G47.33 Obstructive sleep apnea (adult) (pediatric); Z99.81 Dependence on supplemental oxygen; Z87.891 Personal history of nicotine dependence
CPT/HCPCS: 36415; 49083; 80053; 85025; 96365-59; 96366-59; 99284-25; J7030; P9046